=== PATIENT | female | born 1980 ===

== ENCOUNTER 2022-02-13 19:49 | Emergency (ER) | payer MEDICAID ==
[2022-02-13 21:01] LABS: ESTIMATED GFR 72 mL/min (>60)
[2022-02-13] MEDS ORDERED: Ketorolac 30 MG/ML SDV IM STA (22:00)
[2022-02-14 02:58] VITALS: BP 118/74; PULSE 93
== END 2022-02-13 22:05 | disposition home or self-care (01) ==
LOC: FB.ED 19:49
DX: S09.93XA Unspecified injury of face, initial encounter (principal); E11.65 Type 2 diabetes mellitus with hyperglycemia; Y04.0XXA Assault by unarmed brawl or fight, initial encounter
CPT/HCPCS: 36415; 70450; 73030-RT; 80053; 85025; 96372; 99284; J1885